=== PATIENT | female | born 1935 | race Caucasian/White ===

== ENCOUNTER → 2017-01-22 | Day surgery (SDC) | payer MEDICARE, OTHER ==
[~2017-01-22] MED LIST: ASPIRIN CHEWABL81 MG PO; CELEXA10 MG PO; CENTRUM SILVER1 EAC1 PO; COLESTID 1GM TAB1 GM PO; COREG 6.25MG6.25 MG PO; LEVAQUIN750 MG PO; NORVASC5 MG PO; OMEPRAZOLE20 MG PO; PREDNISONE5 MG PO; PRINIVIL10 MG PO; ZOCOR20 MG PO
[2017-01-22 09:39] LABS: HCT 38.8 % (37.0-47.0); HGB 12.6 g/dl (12.5-16.0); MCH 30.2 pg (25.0-31.0); MCHC 32.5 g/dL (32.0-36.0); MPV 10.4 fL (6.0-9.5); RBC 4.17 M/uL (4.20-5.40); RDW 14.3 % (11.5-14.0); WBC 8.9 K/uL (4.0-10.5)
== END | disposition home or self-care (01) ==
LOC: FAS 09:00
PROVIDERS: Surgery
DX: K63.9 Disease of intestine, unspecified (principal); K21.9 Gastro-esophageal reflux disease without esophagitis; I10 Essential (primary) hypertension; I48.91 Unspecified atrial fibrillation; E78.00 Pure hypercholesterolemia, unspecified; F41.9 Anxiety disorder, unspecified; M19.90 Unspecified osteoarthritis, unspecified site; M06.9 Rheumatoid arthritis, unspecified; Z88.2 Allergy status to sulfonamides; Z88.0 Allergy status to penicillin; Z88.8 Allergy status to other drugs, medicaments and biological substances; Z88.5 Allergy status to narcotic agent; Z90.49 Acquired absence of other specified parts of digestive tract; Z90.89 Acquired absence of other organs; Z82.49 Family history of ischemic heart disease and other diseases of the circulatory system; Z83.49 Family history of other endocrine, nutritional and metabolic diseases; Z82.61 Family history of arthritis; Z79.82 Long term (current) use of aspirin; Z79.52 Long term (current) use of systemic steroids; Z79.899 Other long term (current) drug therapy; Z98.890 Other specified postprocedural states
CPT/HCPCS: 36415; 88305; J2704

== ENCOUNTER 2020-08-30 10:14 | Inpatient (IN) | payer MEDICARE, OTHER ==
[~2020-08-30 10:14] MED LIST changes: +3IN1 COMMODE; +ACETAMINOPHEN325 MG PO; +CALCIUM 1,0001 EACH PO; +CALCIUM 500 +1 EAC2 PO; +IFEREX 150150 MG PO; +LEVAQUIN500 MG PO; +LIDOCAINE 5% P1 EACH TOP; +LIPITOR20 MG PO; +MAG-OXIDE 400M400 MG PO; +MICON-GUARD 2% TOP; +MIRTAZAPINE 15M15 MG PO; +NAPROSYN250 MG PO; +NORVASC2.5 MG PO; -OMEPRAZOLE20 MG PO; +ONDANSETRON ODT4 MG PO/SL; +PHOSPHA 250 NE250 MG PO; +POTASSIUM CHLO10 ME1 PO; +POTASSIUM CHLO20 ME2 PO; +PRILOSEC20 MG PO; +REMERON15 MG PO
[2020-08-30 11:50] LABS: BASOPHIL 0.4 % (0-2); EOSINOPHIL 2.2 % (0-7); HCT 36.9 % (37.0-47.0); HGB 11.4 g/dl (12.5-16.0); LYMPHOCYTE 11.5 % (15-48); MCH 30.3 pg (25.0-31.0); MCHC 30.9 g/dL (32.0-36.0); MCV 98.1 fL (78.0-100.0); MONOCYTE 9.1 % (0-12); MPV 10.4 fL (6.0-9.5); NEUTROPHIL 76.4 % (41-80); NRBC 0; PLT 254 K/uL (150-400); RBC 3.76 M/uL (4.20-5.40); RDW 15.1 % (11.5-14.0); WBC 14.3 K/uL (4.0-10.5)
[2020-08-30 12:10] LABS: LACTIC ACID 2.3 mmol/L (0.4-1.9)
[2020-08-30 12:13] LABS: ALBUMIN 2.9 g/dL (3.4-5.0); BILIRUBIN - TOTAL 0.4 mg/dL (0.2-1.0); BUN/CREAT RATIO (CALC) 19.8 RATIO; CREATININE 0.91 mg/dL (0.51-0.95); GLOBULIN (CALCULATION) 3.8 g/dL; POTASSIUM 3.9 mmol/L (3.5-5.1); TOTAL PROTEIN 6.7 g/dL (6.4-8.2)
[2020-08-30 14:21] LABS: BILIRUBIN NEGATIVE (NEGATIVE); BLOOD 1+ Ery/uL (NEGATIVE); CLARITY CLEAR (CLEAR); COLOR YELLOW (YELLOW); GLUCOSE (U) NORMAL (NORMAL); LEUKOCYTES 2+ Leu/uL (NEGATIVE); NITRITE NEGATIVE (NEGATIVE); PROTEIN 1+ mg/dL (NEGATIVE); UROBILINOGEN 0.2 mg/dL (0.2-1.0); pH 7.5 (5.0-9.0)
[2020-08-30 14:26] LABS: BACTERIA 2+
[2020-08-30] MEDS ORDERED: ARICEPT10 MG PO (18:40)
[2020-08-30] MEDS ORDERED: MAG-OXIDE 400M400 MG PO (18:40)
[2020-08-30] MEDS ORDERED: OYSTER SHELL 51 EACH PO (18:42)
[2020-08-30] MEDS ORDERED: K-DUR20 MEQ PO (18:42)
[2020-08-30] MEDS ORDERED: PREDNISONE5 MG PO (18:43)
[2020-08-30] MEDS ORDERED: VITAMIN D31250 MC1 PO (18:46)
[2020-08-30] MEDS ORDERED: PROTONIX 40MG T40 MG PO (18:47)
[2020-08-30] MEDS ORDERED: MYLICON80 MG PO (18:47)
[2020-08-31 08:23] LABS: HCT 37.2 % (37.0-47.0); HGB 11.2 g/dl (12.5-16.0); MCH 29.6 pg (25.0-31.0); MCHC 30.1 g/dL (32.0-36.0); MCV 98.4 fL (78.0-100.0); MPV 9.9 fL (6.0-9.5); RBC 3.78 M/uL (4.20-5.40); RDW 15.6 % (11.5-14.0); WBC 12.4 K/uL (4.0-10.5)
[2020-08-31 08:40] LABS: BUN/CREAT RATIO (CALC) 15.6 RATIO; CREATININE 0.96 mg/dL (0.51-0.95); POTASSIUM 3.8 mmol/L (3.5-5.1)
[2020-09-02 06:04] LABS: BASOPHIL 0.3 % (0-2); EOSINOPHIL 0.5 % (0-7); HCT 33.1 % (37.0-47.0); HGB 10.2 g/dl (12.5-16.0); LYMPHOCYTE 21.2 % (15-48); MCH 30.3 pg (25.0-31.0); MCHC 30.8 g/dL (32.0-36.0); MCV 98.2 fL (78.0-100.0); MONOCYTE 9.8 % (0-12); MPV 10.6 fL (6.0-9.5); NEUTROPHIL 67.7 % (41-80); NRBC 0; PLT 245 K/uL (150-400); RBC 3.37 M/uL (4.20-5.40); RDW 15.2 % (11.5-14.0)
[2020-09-02 06:23] LABS: BUN/CREAT RATIO (CALC) 23.9 RATIO; CREATININE 0.92 mg/dL (0.51-0.95)
[2020-09-03] MEDS ORDERED: CLONAZEPAM0.5 MG PO (14:31)
[2020-09-03] MEDS ORDERED: LEVAQUIN500 MG PO (14:31)
[2020-09-03] MEDS ORDERED: CELEXA10 MG PO (14:39)
== END 2020-09-03 14:51 | disposition home health service (06) | DRG 391 ==
LOC: FER 10:14 → FMS 17:00
PROVIDERS: Emergency Medicine Emergency Medical Services; Internal Medicine; ADMIT Internal Medicine
DX: K52.9 Noninfective gastroenteritis and colitis, unspecified (principal); J18.9 Pneumonia, unspecified organism; M48.54XA Collapsed vertebra, not elsewhere classified, thoracic region, initial encounter for fracture; K21.9 Gastro-esophageal reflux disease without esophagitis; I10 Essential (primary) hypertension; G89.29 Other chronic pain; M54.9 Dorsalgia, unspecified; M19.90 Unspecified osteoarthritis, unspecified site; E86.0 Dehydration; R14.2 Eructation; E78.5 Hyperlipidemia, unspecified; F03.90 Unspecified dementia, unspecified severity, without behavioral disturbance, psychotic disturbance, mood disturbance, and anxiety; Z90.49 Acquired absence of other specified parts of digestive tract; Z88.0 Allergy status to penicillin; Z88.6 Allergy status to analgesic agent; Z88.8 Allergy status to other drugs, medicaments and biological substances
CPT/HCPCS: 36415; 74018; 80048; 80053; 81001; 83605; 83690; 84484; 85025; 93005; C9113; J1200; J1956; J2405; J2765; J7030; J7120; J7512; Q9967; U0002

== ENCOUNTER 2020-11-25 | Emergency (ER) | payer MEDICARE, OTHER ==
[~2020-11-25] MED LIST changes: +ARICEPT10 MG PO; +CLONAZEPAM0.5 MG PO; +K-DUR20 MEQ PO; +MYLICON80 MG PO; +OYSTER SHELL 51 EACH PO; +PROTONIX 40MG T40 MG PO; +VITAMIN D31250 MC1 PO
[2020-11-25 00:44] LABS: BASOPHIL 0.6 % (0-2); EOSINOPHIL 3.3 % (0-7); HCT 37.9 % (37.0-47.0); HGB 12.3 g/dl (12.5-16.0); MCH 30.8 pg (25.0-31.0); MCHC 32.5 g/dL (32.0-36.0); MCV 94.8 fL (78.0-100.0); MONOCYTE 11.4 % (0-12); MPV 10.3 fL (6.0-9.5); NEUTROPHIL 61.4 % (41-80); NRBC 0; PLT 272 K/uL (150-400); RDW 14.9 % (11.5-14.0); WBC 12.2 K/uL (4.0-10.5)
[2020-11-25 01:09] LABS: ALBUMIN 3.7 g/dL (3.4-5.0); BILIRUBIN - TOTAL 0.5 mg/dL (0.2-1.0); BUN/CREAT RATIO (CALC) 22.8 RATIO; CREATININE 0.92 mg/dL (0.51-0.95); GLOBULIN (CALCULATION) 3.9 g/dL; POTASSIUM 3.3 mmol/L (3.5-5.1); TOTAL PROTEIN 7.6 g/dL (6.4-8.2)
[2020-11-25 02:09] LABS: BILIRUBIN NEGATIVE (NEGATIVE); BLOOD TRACE-INTACT Ery/uL (NEGATIVE); CLARITY CLEAR (CLEAR); COLOR YELLOW (YELLOW); GLUCOSE (U) NORMAL (NORMAL); LEUKOCYTES 1+ Leu/uL (NEGATIVE); NITRITE NEGATIVE (NEGATIVE); PROTEIN NEGATIVE (NEGATIVE); UROBILINOGEN 0.2 mg/dL (0.2-1.0); pH 7.5 (5.0-9.0)
[2020-11-25 02:16] LABS: BACTERIA TRACE
[2020-11-25] MEDS ORDERED: LEVAQUIN500 MG PO (03:41)
== END 2020-11-25 03:45 | disposition home or self-care (01) ==
LOC: FER
PROVIDERS: Emergency Medicine
DX: N30.90 Cystitis, unspecified without hematuria (principal); I10 Essential (primary) hypertension; F03.90 Unspecified dementia, unspecified severity, without behavioral disturbance, psychotic disturbance, mood disturbance, and anxiety; K21.9 Gastro-esophageal reflux disease without esophagitis; K44.9 Diaphragmatic hernia without obstruction or gangrene; Z88.0 Allergy status to penicillin; Z88.1 Allergy status to other antibiotic agents; Z88.2 Allergy status to sulfonamides; Z88.8 Allergy status to other drugs, medicaments and biological substances; Z79.899 Other long term (current) drug therapy
CPT/HCPCS: 36415; 74022; 80053; 81001; 82150; 83690; 85025; 87088; 87186; J2405; J7030; Q9967